=== PATIENT | female | born 1975 | race Caucasian/White ===

== ENCOUNTER 2016-11-20 17:12 | Observation (INO) | payer BC ==
[2016-11-20] MEDS ORDERED: Metoprolol Tartrate IV* 1 MG/ML 5 ML VIAL IV ONE (19:04)
--- NOTE | 2016-11-20 19:34 | RAD ---
Indication: Disequilibrium. Unsteady gait. Comparison: No relevant prior exams available on the [facility] for comparison. Technique: Noncontrast CT vertex of skull through foramen magnum. Report: The sulci, ventricles, and basal cisterns are normal for age. Nguyen matter white matter differentiation is preserved without evidence for edema. No intra or extra axial hemorrhage, mass, or fluid collection detected. Unremarkable visualized orbital contents. Unremarkable calvarium and skull base. Unremarkable scalp. The visualized paranasal sinuses and mastoid air spaces are clear. IMPRESSION: Negative unenhanced head CT.
[2016-11-20] MEDS ORDERED: Aspirin TAB* 325 MG PO ONE (19:42)
[2016-11-20 19:46] LABS: Hematocrit 41 % (35-47); Hemoglobin 13.4 g/dl (12.0-16.0); Mean Corpuscular HGB Conc 33 g/dl (31-36); Mean Corpuscular Hemoglobin 31 pg (27-31); Mean Corpuscular Volume 93 fL (80-97); Mean Platelet Volume 8 um3 (7.4-10.4); Red Blood Count 4.36 10^6/ul (4.0-5.4); Red Cell Distribution Width 13 % (10.5-15); White Blood Count 10.8 10^3/ul (3.5-10.8)
[2016-11-20 20:01] LABS: Albumin 4.7 g/dL (3.2-5.2); BUN/Creatinine Ratio 16.5 (8-20); Calcium 9.2 mg/dL (8.6-10.3); EGFR African American 93.9 (>60); Globulin 2.7 g/dL (2-4); Potassium 3.4 mmol/L (3.5-5.0); Total Bilirubin 0.4 mg/dL (0.2-1.0); Total Protein 7.4 g/dL (6.4-8.9)
[2016-11-20] MEDS ORDERED: Iohexol 350* (CONTRAST) 500 ML MDV IV ONE (20:17)
[2016-11-20] MEDS ORDERED: Potassium Chlor TAB* 20 MEQ TAB.ER PO ONE (21:00)
[2016-11-20 21:03] LABS: Urine Bilirubin Negative (Negative); Urine Glucose Negative (Negative); Urine Nitrite Negative (Negative)
--- NOTE | 2016-11-20 21:39 | RAD ---
INDICATION: Ataxia. Vertigo. COMPARISON: CT brain of the same date. TECHNIQUE: Multidetector CT images were obtained from the aortic arch to the vertex of the head with 80 mL Omnipaque 350 IV contrast. Arterial phase of enhancement. Multiplanar reformation including maximum intensity projection. 3-D arterial volume rendering. Stenosis estimations based on denominator of distal arterial diameter. NECK ANGIOGRAM REPORT: Apparent origin of RIGHT subclavian artery which courses posterior to the esophagus and trachea anterior to the spine. No atherosclerotic plaque at the common or internal carotid arteries. Negative for carotid artery dissection. Tortuous distal internal carotid arteries. Patent LEFT dominant and mildly smaller RIGHT vertebral arteries with both contributing to the basilar artery. 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 Degenerative spondylosis at C5-C6. No significant acquired spinal stenosis evident. NECK ANGIOGRAM IMPRESSION: Negative for stenosis, occlusion, or dissection of the carotid arteries. Patent vertebral arteries. HEAD ANGIOGRAM REPORT: Patent bilateral intracranial internal carotid arteries as well as the M1 and M2 segments of the middle cerebral arteries and A1 and A2 segments of the anterior cerebral arteries. Patent anterior communicating artery. Patent unremarkable basilar artery and cerebellar artery origins. Patent posterior cerebral arteries are supplied primarily by the posterior circulation with normal variant hypoplastic posterior communicating arteries. No intracranial aneurysm or vascular malformation evident. Patent dominant dural venous sinuses. HEAD ANGIOGRAM IMPRESSION: Normal CT angiogram of the head. CPT II: CPT II Codes: 3100F
--- NOTE | 2016-11-21 01:18 | HP ---
CC: Benedict Grewal NP * HISTORY AND PHYSICAL: DATE OF ADMISSION: 11/20/16 PRIMARY CARE PROVIDER: Benedict Grewal NP ATTENDING PHYSICIAN: Dr. Seymour Barba * (dictated by Jazmin Navarrete NP). CHIEF COMPLAINT: Dizziness when lying down and unsteady gait. HISTORY OF PRESENT ILLNESS: Ms. Leone is a 41-year-old female with no significant past medical history who reports feeling at her normal state of health when she initially got up today. She had noticed while walking around her kitchen this morning that she had an unsteady gait. She states that she then lied down to get her hair in a ponytail and noticed that she had dizziness that she describes as room spinning. The patient denies any recent fever, chills, chest pain, nasal congestion, shortness of breath. She denies any of recent allergy symptoms or other cold symptoms. The patient reports a chronic postnasal drip. She denies any visual changes, focal weakness, facial droop, or speech difficulties. She does report some nausea associated with the dizziness. She noticed that the dizziness worsens when she goes from a sitting to lying position, not necessarily that she was dizzy when lying flat, but the movement of lying down increases the dizziness. The patient recalls the symptoms starting around 6 am today. Due to her concern of her symptoms, she decided to present to the emergency room for further evaluation of her symptoms. While in the emergency room, the patient had labs that were fairly unremarkable , she was slightly hypokalemic with a potassium of 3.7. She had an EKG showing a normal sinus rhythm and a rate of 85. There are no previous EKGs for comparison. EKG shows no signs of acute ischemia. The patient had a head CT that was negative. According to the ED provider her performed a Tyler-Hallpike maneuver that was negative. Dr. Jane was consulted by the ER provider who recommended the patient have a CTA of her head and neck followed admission by the hospitalist service to rule out a possible CVA. PAST MEDICAL HISTORY: None. PAST SURGICAL HISTORY: 1. Status post tubal ligation in 2004. 2. Status post appendectomy approximately 30 years ago. HOME MEDICATIONS: The patient reports no home medications. ALLERGIES: No known drug allergies. FAMILY HISTORY: The patient's denies any family history of coronary artery disease or clotting disorders. The patient's father has history of diabetes mellitus. The patient had a maternal grandmother with a history of colon cancer and her father with history of esophageal cancer. SOCIAL HISTORY: The patient smokes approximately a pack in a day and a half and she smokes for the last 26 years. She denies recreational drug use or alcohol use. 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 She is and lives with her . Her , Rosario Leone, will be her surrogate decision in the event she is unable to make decisions for herself. REVIEW OF SYSTEMS: I performed a 14-point review of systems. All the pertinent positives and negatives are mentioned in the history of present illness. The remaining review of systems are negative. PHYSICAL EXAMINATION GENERAL APPEARANCE: The patient is alert, pleasant, appears to be in no acute distress. VITAL SIGNS: Temperature 98.7, heart rate 66, respiratory rate 17, O2 saturation 99% on room air, blood pressure 130/77. HEENT: Normocephalic, atraumatic. Pupils are equal and reactive to light. Extraocular movements are intact. Ears, right tympanic membrane pearly vazquez. Left tympanic membrane pearly vazquez with a small area of redness at approximately 7 o'clock. RESPIRATORY: There is no accessory muscle use. The lungs are clear to auscultation bilaterally. CARDIOVASCULAR: Regular rate and rhythm. S1 and S2 present. There are no murmurs, rubs, or gallops heard. ABDOMEN: Soft, nontender, nondistended. There are bowel sounds present x4 EXTREMITIES: There is no lower extremity edema. DP and PT pulses are 2+ and symmetric. MUSCULOSKELETAL: There is no clubbing or cyanosis noted. The patient exhibits good equal strength in all extremities. NEUROLOGICAL: The patient is alert and oriented x4. Cranial nerves II through XII are grossly intact. The patient's tongue is midline and her smile is symmetric. Her hand otolaryngology nurse are equal. Her dorsi and plantarflex are equal bilaterally. The patient is able to perform heel from the ankle to knee bilateral without any ataxia. The patient is able to perform [id number] bilateral without ataxia. PSYCHOLOGICAL: The patient is calm and cooperative. SKIN: There are no rashes or abnormalities seen. DIAGNOSTIC STUDIES/LABORATORY DATA: Sodium 134, potassium 3.4, chloride 103, CO2 26, BUN 14, creatinine 0.85, glucose 99. White blood cell count 10.8, hemoglobin 13.4, hematocrit 41, platelet count 318. EKG from today shows a normal sinus rhythm with a rate of 85. There are no acute signs of ischemia. There are no previous EKGs for comparison. Brain CT from today. Radiologist's impression negative unenhanced CT. IMPRESSION: Ms. Leone is a 41-year-old female with no significant past medical history who presents to the emergency room with fairly sudden onset of an unsteady gait and dizziness this morning. She would be admitted as an observation to rule out transient ischemic attack or cerebrovascular accident. ASSESSMENT AND PLAN: 1. Dizziness and unsteady gait. The patient's vertigo could be central or peripheral vertigo, but i suspect it is most likely BPPV. The patient had a CT of her head that was negative while in the emergency room. She also received a dose of aspirin. We will monitor the patient on telemetry. We will do neurological checks q.4. We will check a transthoracic echocardiogram and a brain MRI in the morning. The patient will be getting CTA of her head and neck prior to admission up to the floor. The case has been reviewed with Neurology electronics technician. We will talk with Neurology tomorrow for a consultation if needed. We will check fasting lipids in the morning and the patient will be continued on aspirin. 2. Fluids, electrolytes, and nutrition. Regular diet. 3. Code status. Full code. 4. DVT prophylaxis. The patient is at low risk. She will be encouraged to ambulate and have SCDs. 5. Disposition. Observation. TIME SPENT: Time for this admission was approximately 45 minutes, greater than half of that was spent with the patient and the family discussing medications, past medical history, and events leading to her arrival today and performing the physical examination. The case has been reviewed with the attending, Dr. Barba, who agrees with the plan of care. Reviewed by KATY MARTINES 11/21/16 [id number]/[facility] #: [id number] [place]
[2016-11-21 05:26] LABS: BUN/Creatinine Ratio 20.8 (8-20); Calcium 8.7 mg/dL (8.6-10.3); EGFR African American 105.2 (>60); EGFR Non-African American 81.8 (>60); HDL Cholesterol 60.4 mg/dL; Potassium 3.8 mmol/L (3.5-5.0)
[2016-11-21] MEDS ORDERED: Aspirin EC Low Dose* 81 MG TAB.EC PO SCH (09:00)
--- NOTE | 2016-11-21 12:15 | RAD ---
HISTORY: Stroke COMPARISONS: Head CT dated November 20, 2016 TECHNIQUE: The following sequences were obtained of the head: Sagittal T1-weighted images, axial T2-weighted images, axial FLAIR images, axial susceptibility weighted images, axial T1-weighted images. Additionally, axial diffusion-weighted images were obtained with calculated apparent diffusion coefficients. FINDINGS: HEMORRHAGE/INFARCT: There is no hemorrhage or acute infarct. MASSES/SHIFT: There is no mass or shift. EXTRA-AXIAL SPACES/MENINGES: There are no extra-axial fluid collections. SULCI AND VENTRICLES: The sulci and ventricles are normal in size and position for the patient's stated age. CEREBRUM: There are no focal parenchymal abnormalities. BRAINSTEM: There are no focal parenchymal abnormalities. CEREBELLUM: There are no focal parenchymal abnormalities. The cerebellar tonsils are normal in size and position. SELLA: The sella is normal. PINEAL: The pineal region is clear. CP ANGLE/TEMPORAL BONES: The labyrinthine structures are grossly normal. VESSELS: Normal flow-voids are noted within the visualized vertebral vasculature. DIFFUSION ABNORMALITIES: There are no diffusion abnormalities. PARANASAL SINUSES/MASTOIDS: The paranasal sinuses are clear. ORBITS: The orbits are unremarkable. BONES AND SOFT TISSUE: No bone or soft tissue abnormalities are noted. OTHER: None IMPRESSION: NORMAL BRAIN. NO RESTRICTED DIFFUSION TO SUGGEST ACUTE INFARCT.
[2016-11-21 12:51] VITALS: BP 107/70
--- NOTE | 2016-11-21 13:19 | DCNOTE ---
Patient seen this morning and again in the afternoon. No further dizzy spells. Has felt steady on her feet but has not walked very far. On exam, RRR, s1 and s2 present, no m/g/r, abd soft, NTND, BS+, lungs CTA B/L, no w/r/r, CN II-XII intact, strength 5/5 throughout B/L UEs and LEs, sensation intact and symmetric, [id number] good. MRI negative. Echo done and pending read. Suspect this is BPPV. D/C on prn meclizine.
--- NOTE | 2016-11-21 14:17 | ECHO ---
Patient: PRISCILLA PARIKH [facility] Rec#: [id number] : 1975 Date: 11/21/2016 Age: 41y Height: 167.64 cm / 66.0 in Weight: 72.57 kg / 159.9 lbs Sex: F BSA: 1.82 Room#: 434 Admit Date#: 11/20/2016 Type: Inpatient Referring: Jazmin Feliciano NP Reading: Rodriguez Lindsay DO Inside Outside Sales Representative: Ofelia Soriano RDCS CC: Benedict Grewal NP Transthoracic Echocardiogram Indication: TIA BP: 126/63 HR: 71 Rhythm: NSR Findings History: TIA sx.,no prior medical hx.,smoker. Technical Comments: The study quality is good. Completed at 1033. Left Ventricle: The left ventricular chamber size is normal. There is no left ventricular hypertrophy. Global left ventricular wall motion and contractility are within normal limits. There is normal left ventricular systolic function. The estimated ejection fraction is 60-65%. Normal left ventricular diastolic filling is observed. Left Atrium: The left atrial chamber size is normal. Right Ventricle: The right ventricular cavity size is normal. The right ventricular global systolic function is normal. Right Atrium: The right atrial cavity size is normal. There is no patent foramen ovale visualized. A patent foramen ovale is not demonstrated with color Doppler and agitated contrast. Aortic Valve: The aortic valve is trileaflet. There is no evidence of aortic regurgitation. There is no evidence of aortic stenosis. Mitral Valve: The mitral valve leaflets appear normal. There is a trace of mitral regurgitation. There is no evidence of mitral stenosis. Tricuspid Valve: The tricuspid valve leaflets are normal. There is trace tricuspid regurgitation. Unable to estimate the right ventricular systolic pressure. There is no tricuspid stenosis. Pulmonic Valve: The pulmonic valve appears normal. There is no evidence of pulmonic regurgitation. There is no pulmonic stenosis. Pericardium: There is no significant pericardial effusion. Aorta: There is no dilatation of the ascending aorta. There is no dilatation of the aortic arch. There is no dilation of the aortic root. Pulmonary Artery: The main pulmonary artery is not well visualized. Venous: The inferior vena cava is dilated. There is a greater than 50% respiratory change in the inferior vena cava dimension. Contrast: Normal saline was used as contrast for the bubble study. Intravenous contrast was used to help determine presence of intracardiac shunting. Conclusions The left ventricular chamber size is normal. There is no left ventricular hypertrophy. There is normal left ventricular systolic function. The estimated ejection fraction is 60-65%. The left atrial chamber size is normal. The right ventricular cavity size is normal. The right ventricular global systolic function is normal. A patent foramen ovale is not demonstrated with color Doppler and agitated contrast (negative bubble study) No significant valvular abnormalities noted. No prior studies available for comparison at time of interpretation. Measurements Name Value Normal Range RVIDd (AP) 2D 2.6 cm (0.9 - 2.6) RVDdMajor (2D) 2.6 cm (2.2 - 4.4) RAd ISD 4CH 4.9 cm (3.4 - 4.9) RA (A4C)W 3.8 cm (2.9 - 4.6) IVSd (2D) 1 cm (0.6 - 1) LVPWd (2D) 0.7 cm (0.6 - 1) LVIDd (2D) 4.5 cm (3.6 - 5.4) LVIDs (2D) 2.9 cm - LV FS (2D) 35 % (25 - 45) Aortic Annulus 1.6 cm (1.4 - 2.6) Ao root diameter (2D) 2.6 cm (2.1 - 3.5) Ascending Ao 2.9 cm (2.1 - 3.4) Aortic arch 2.5 cm (1.8 - 3.4) Descending Ao 0.8 cm - LA dimension (AP) 2D 3.5 cm (2.3 - 3.8) LAd ISD 4CH 5 cm (2.9 - 5.3) LA ISD 4CH W 3.7 cm (2.5 - 4.5) Name Value Normal Range LA ESV SP 4CH (A/L) 48 ml - LA ESV SP 2CH (A/L) 43 ml - LA ESV BP (A/L) 50 ml - LA ESV BP (A/L) index 27.22 ml/m2 - LA ESV SP 4CH (MOD) 42 ml - LA ESV SP 2CH (MOD) 42 ml - Name Value Normal Range MV E-wave Vmax 1 m/sec - MV deceleration time 268 msec - MV A-wave Vmax 0.69 m/sec - MV E:A ratio 1.45 ratio - LV septal e' Vmax 0.11 m/sec - LV lateral e' Vmax 0.16 m/sec - LV E:e' septal ratio 9.09 ratio - LV E:e' lateral ratio 6.25 ratio - Name Value Normal Range AV Vmax 1.5 m/sec - AV VTI 30 cm - AV peak gradient 8.4 mmHg - AV mean gradient 4.3 mmHg - LVOT Vmax 1.2 m/sec - LVOT VTI 28.2 cm - LVOT peak gradient 5.79 mmHg - LVOT mean gradient 2.67 mmHg - Name Value Normal Range IVC diameter 2.2 cm - Name Value Normal Range PV Vmax 0.8 m/sec - PV peak gradient 2.8 mmHg -
--- NOTE | 2016-11-22 13:50 | DS ---
CC: eBnedict Grewal NP DISCHARGE SUMMARY: DATE OF ADMISSION: 11/20/16 DATE OF DISCHARGE: 11/21/16 PRIMARY CARE PROVIDER: Benedict Grewal NP PRINCIPAL DISCHARGE DIAGNOSES: Benign paroxysmal positional vertigo. STUDIES DONE DURING HOSPITALIZATION: CT of the brain without contrast, impression: Negative unenhan lulú head CT. CTA of the head and neck: Normal CT angiogram of the head. Neck angiogram negative for stenosis, o cclusion, or dissection vertebral arteries. Transthoracic echocardiogram, conclusion: Left ventricular chamber size is normal. No LVH. Normal left ventricular systolic function. EF is 60% to 65%. Left atrial chamber size is normal. Right v entricular cavity size is normal. Right ventricular global systolic function is normal. Patent for amen ovale is not demonstrated. No significant valvular abnormalities noted. MRI of the brain, impression: Normal brain. No restricted diffusion to suggest acute infarct. DISCHARGE MEDICATION REGIMEN: Meclizine 25 mg by mouth every 6 hours as needed for vertigo. HISTORY OF PRESENT ILLNESS AND HOSPITAL COURSE: Please see the full history and physical by Jazmin Boateng NP, for full details. Briefly, Ms. Leone is a 41-year-old female with no past m edical history, who presented to the hospital after some unsteady gait and episodes of dizziness wit h room spinning. She underwent a Bend-Hallpike maneuver in the ED that was negative. The patient un derwent a CTA of the head and neck and CT of the head, both of which were negative. She was observe d overnight in the hospital to complete the stroke workup, which was largely unremarkable. This was felt to be due to vertigo and symptoms had improved by the time the patient was discharged. She wi ll be discharged with p.r.n. meclizine and follow up with her PCP as an outpatient. TIME SPENT: Tot al time spent on this discharge 45 minutes. This is a summary of the hospitalization. Please see the full medical record for further details. [id number]/[facility] #: [id number]
== END 2016-11-21 15:51 | disposition home or self-care (01) ==
LOC: ED 17:12 → MEDTELE 19:43
PROVIDERS: ADMIT Internal Medicine; ATTEND Hospitalist
DX: H81.10 Benign paroxysmal vertigo, unspecified ear (principal); E87.6 Hypokalemia; R11.0 Nausea; F17.210 Nicotine dependence, cigarettes, uncomplicated; R42 Dizziness and giddiness; R27.0 Ataxia, unspecified
CPT/HCPCS: 36415; 70450; 70496; 70498; 70551; 80048; 80053; 80061; 81003; 83605; 84484; 85025; 85610; 93005; 93306; 96374; 99283; A9270-GY; G0378; Q9967

== ENCOUNTER 2018-02-23 09:36 | Emergency (ER) | payer BC ==
[2018-02-23 09:51] VITALS: BP 145/92
--- NOTE | 2018-02-23 10:34 | UC ---
Back Pain HPI - HPI Summary HPI Summary: WOKE UP YESTERDAY MORNING WITH LOW BACK PAIN. BETTER WITH HEAT AND IBUPROFEN. AFTER WALKING FOR A WHILE THE PAIN WILL SOMETIMES RADIATE INTO HER HIPS AND KNEES. DENIES ANY URINARY SYMPTOMS. NO NUMBNESS OR TINGLING IN HER LOWER EXTREMITIES. NO SADDLE ANESTHESIA. 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 DENIES ANY DISCRETE TRAUMA. - History of Current Complaint Chief Complaint: UCBackPain Stated Complaint: BACK PAIN Time Seen by Provider: 02/23/18 10:01 Hx Obtained From: Patient Hx Last Menstrual Period: 02/01/18 Onset/Duration: Sudden Onset, Lasting Days - 1 DAY, Still Present Timing: Constant Severity Initially: Moderate Severity Currently: Moderate Pain Intensity: 6 Pain Scale Used: 0-10 Numeric Back Pain: Is Discrete @ - LOW BACK Character: Sharp Aggravating Factor(s): Movement Alleviating Factor(s): Rest Associated Signs And Symptoms: Negative: Swelling, Redness, Bruising, Weakness, Numbness, Tingling, Bladder Incontinence, Bowel Incontinence - Allergies/Home Medications Allergies/Adverse Reactions: Allergies Allergy/AdvReac Type Severity Reaction Status Date / Time No Known Allergies Allergy Verified 02/23/18 09:42 Home Medications: Home Medications Levothyroxine TAB* [Synthroid TAB*] 50 mcg PO DAILY 02/23/18 [History Confirmed 02/23/18] Metoprolol Tartrate TAB* [Lopressor TAB*] 25 mg PO DAILY 02/23/18 [History Confirmed 02/23/18] PMH/Surg Hx/FS Hx/Imm Hx Endocrine History: Hypothyroidism Cardiovascular History: Hypertension - Surgical History Surgical History: Yes Surgery Procedure, Year, and Place: appy 1984, tubal 2004 - Family History Known Family History: Positive: Hypertension - Social History Alcohol Use: None Substance Use Type: None Smoking Status (MU): Current Every Day Smoker Type: Cigarettes Amount Used/How Often: 1/2 PPD Household Exposure Type: Cigarettes - Immunization History Most Recent Influenza Vaccination: unknown Most Recent Pneumonia Vaccination: 2011 Review of Systems Constitutional: Negative Skin: Negative Respiratory: Negative Cardiovascular: Negative Gastrointestinal: Negative Musculoskeletal: Arthralgia, Decreased ROM, Myalgia All Other Systems Reviewed And Are Negative: Yes Physical Exam Triage Information Reviewed: Yes Appearance: Well-Appearing, No Pain Distress, Well-Nourished Vital Signs: Initial Vital Signs Temp 99.6 F 02/23/18 09:43 Pulse 85 02/23/18 09:43 Resp 18 02/23/18 09:43 BP 145/92 02/23/18 09:43 Pulse Ox 100 02/23/18 09:43 Vital Signs Reviewed: Yes Eyes: Positive: Conjunctiva Clear ENT: Positive: Hearing grossly normal Neck: Positive: Supple Respiratory: Positive: No respiratory distress, No accessory muscle use Cardiovascular: Positive: Pulses Normal Musculoskeletal: Positive: No Edema, ROM Limited @ - BACK, Other: - NO TENDERNESS OVER SPINE OR PARASPINOUS MUSCLES Neurological: Positive: Alert Psychological: Positive: Age Appropriate Behavior Skin: Negative: rashes Diagnostics - Radiology LUMBAR SPINE XRAYS Radiology Interpretation Completed By: Radiologist Summary of Radiographic Findings: No fracture of the lumbar spine is noted. No significant degenerative change Back Pain Course/Dx - Differential Dx/Diagnosis Provider Diagnoses: acute low back strain Discharge - Sign-Out/Discharge Documenting (check all that apply): Patient Departure All imaging exams completed and their final reports reviewed: Yes - Discharge Plan Condition: Stable Disposition: HOME Prescriptions: Cyclobenzaprine TAB* [Flexeril TAB*] 10 mg PO BID PRN #30 tab PRN Reason: Pain Patient Education Materials: Low Back Strain (ED) Forms: *Work Release Referrals: Benedict Grewal, DIRECTOR DIGITAL SALES [Primary Care Provider] - If Needed Additional Instructions: XRAY TODAY NEGATIVE FOR FRACTURE OR SIGNIFICANT DEGENERATIVE CHANGE. YOUR SYMPTOMS SHOULD IMPROVE SIGNIFICANTLY OVER THE NEXT 1-2 WEEKS. IF YOU DO NOT IMPROVE EXPECTED FOLLOW-UP WITH YOUR PCP. YOU MAY BENEFIT FROM MORE ADVANCED IMAGING AT THAT TIME. OTC IBUPROFEN OR ALEVE NEEDED FOR DISCOMFORT. REST, USE HEAT. FLEXERIL AT NIGHT. BE SURE TO GO THROUGH SLOW RANGE OF MOTION AND STRETCHING EXERCISES DAILY YOU ARE ABLE TO PREVENT STIFFENING UP AND MAKING THE DISCOMFORT WORSE. - Billing Disposition and Condition Condition: STABLE Disposition: Home
--- NOTE | 2018-02-23 11:00 | RAD ---
Indication: Back pain. 3 views of lumbar spine demonstrate vertebral bodies to be normal in height. Disc spaces all well-preserved. Pedicles appear intact. IMPRESSION: No fracture of the lumbar spine is noted.
== END 2018-02-23 11:19 | disposition home or self-care (01) ==
LOC: UCEAST 09:36
DX: S39.012A Strain of muscle, fascia and tendon of lower back, initial encounter (principal); I10 Essential (primary) hypertension; E03.9 Hypothyroidism, unspecified; F17.210 Nicotine dependence, cigarettes, uncomplicated; Z79.899 Other long term (current) drug therapy; X50.0XXA Overexertion from strenuous movement or load, initial encounter; Y92.9 Unspecified place or not applicable
CPT/HCPCS: 72100; 99212; G0463